=== PATIENT | male | born 1965 | race Caucasian/White ===

== ENCOUNTER 2018-06-21 13:20 | Emergency (ER) | payer OTHER ==
[2018-06-21] MEDS ORDERED: Lorazepam 2 MG/ML VIAL ONE (14:56)
[2018-06-21 15:05] LABS: #Basophils 0.1 thou/uL (0.0-0.2); #Eosinphils 0.1 thou/uL (0.0-0.7); #Monocytes 0.6 thou/uL (0.11-0.59); #Neutrophils 4.4 thou/uL (1.40-6.50); %Basophils 0.7 % (0.0-1.0); %Eosinophils 1.8 % (0.0-10.0); %Lymphocytes 28.2 % (21.0-51.0); %Monocytes 8.5 % (0.0-10.0); %Neutrophils 60.8 % (42.0-75.0); Hemoglobin 15.3 g/dL (14.0-18.0); Mean Corpuscular HGB CONC 33.9 g/dL (32.0-36.0); Mean Corpuscular Hemoglobin 34.1 pg (27.0-31.0); Mean Platelet Volume 9.5 fL (7.4-10.4); Platelet Count 60 thou/uL (130-400); RBC Distribution Width 12.2 % (11.5-14.5); Red Blood Cell (RBC) Count 4.47 mill/uL (4.70-6.10); White Blood Cell (WBC) Count 7.2 thou/uL (4.8-10.8)
[2018-06-21 15:08] LABS: ALT (SGPT) 127 U/L (8-55); AST (SGOT) 128 U/L (5-34); Acetaminophen Less than 6.0 mcg/mL (10.0-30.0); Albumin 4.3 g/dL (3.5-5.0); Alcohol 319 mg/dL (Less than 10); Alkaline Phosphatase 95 U/L (40-150); Anion Gap 15 mmol/L (10-20); BUN (Urea Nitrogen) 5 mg/dL (8.9-20.6); Bilirubin, Total 0.8 mg/dL (0.2-1.2); Calc. Creatinine Clearance 0 mL/min (70-130); Carbon Dioxide 27 mmol/L (22-29); Chloride 103 mmol/L (98-107); Estimated GFR-MDRD Greater than 90; Globulin 2.6 g/dL (2.4-3.5); Glucose 110 mg/dL (70-105); Protein, Total 6.9 g/dL (6.0-8.3); Salicylate Less than 8.0 mg/dL (15.0-30.0); Sodium 141 mmol/L (136-145)
[2018-06-21 15:13] LABS: CKMB 1.6 ng/mL (0-6.6); Troponin I Less than 0.010 ng/mL (< 0.028)
[2018-06-21 15:22] LABS: Bilirubin Negative (Negative); Blood, Urine Negative (Negative); Clarity CLEAR (Clear); Glucose, Urine (Dipstick) Negative (Negative); Leukocyte Negative (Negative); Nitrite Negative (Negative); Protein, Urine (Dipstick) Negative (Neg-Trace); Specific Gravity, Urine 1.003 (1.002-1.036)
[2018-06-21 15:32] LABS: Amphetamine Not Detected (NotDetected); Barbiturates Screen Not Detected (NotDetected); Benzodiazepine Screen Not Detected (NotDetected); Cocaine Metabolite Screen Not Detected (NotDetected); Medtox Control Line Valid? VALID (VALID); Medtox Reader # READER 4; Methadone Not Detected (NotDetected); Methamphetamine Not Detected (NotDetected); Opiate Screen Not Detected (NotDetected); Oxycodone Screen Not Detected (NotDetected); Phencyclidine (PCP) Not Detected (NotDetected); THC/Cannabinoid Screen Not Detected (NotDetected); Tricyclic Screen Not Detected (NotDetected)
--- NOTE | 2018-06-26 13:22 | EKG ---
Test Reason : Blood Pressure : / mmHG Vent. Rate : 072 BPM Atrial Rate : 072 BPM P-R Int : 176 ms QRS Dur : 106 ms QT Int : 382 ms P-R-T Axes : 045 023 039 degrees QTc Int : 418 ms Normal sinus rhythm Normal ECG Confirmed by NORBERT CHAPMAN ([id number]), editor & co founder GABBIE FLETCHER ([id number]) on 06/26/2018 1:21:55 PM Referred By: Confirmed By:NORBERT CHAPMAN
== END 2018-06-21 21:04 | disposition home or self-care (01) ==
LOC: ERS 13:20
DX: F41.9 Anxiety disorder, unspecified (principal); F32.9 Major depressive disorder, single episode, unspecified; F17.210 Nicotine dependence, cigarettes, uncomplicated
CPT/HCPCS: 36415; 80053; 80306; 80307; 81003; 82553; 84484; 85025; 87086; 93005; 96361; 96374; J2060

== ENCOUNTER 2018-08-01 11:27 | Inpatient (IN) | payer OTHER, SELFPAY ==
[2018-08-01 12:13] LABS: PTT 30.1 SEC (22.9-36.1); Prothrombin Time 13.5 SEC (12.0-14.7)
[2018-08-01] MEDS ORDERED: Morphine 4 MG/ML VIAL ONE ×2 (12:21→14:06)
[2018-08-01 12:22] LABS: Band 2 % (5-11); Eosinophils 1 % (0-10); Hemoglobin 12.9 g/dL (14.0-18.0); Lymphocytes 16 % (21-51); MDiff Complete? YES; Mean Corpuscular HGB CONC 33.7 g/dL (32.0-36.0); Mean Corpuscular Hemoglobin 34.5 pg (27.0-31.0); Mean Platelet Volume 8.1 fL (7.4-10.4); Monocytes 13 % (0-10); Neutrophil 68 % (42-75); PLT Morphology Comment Appears Decreased; Platelet Count 100 thou/uL (130-400); RBC Distribution Width 11.5 % (11.5-14.5); Red Blood Cell (RBC) Count 3.75 mill/uL (4.70-6.10); White Blood Cell (WBC) Count 9.6 thou/uL (4.8-10.8)
[2018-08-01 12:27] LABS: ALT (SGPT) 20 U/L (8-55); AST (SGOT) 15 U/L (5-34); Albumin 4.1 g/dL (3.5-5.0); Alkaline Phosphatase 60 U/L (40-150); Anion Gap 8 mmol/L (10-20); BUN (Urea Nitrogen) 11 mg/dL (8.9-20.6); Bilirubin, Total 1.3 mg/dL (0.2-1.2); CK (CPK) 62 U/L (30-200); Calc. Creatinine Clearance 0 mL/min (70-130); Calcium 9.2 mg/dL (7.8-10.44); Carbon Dioxide 27 mmol/L (22-29); Chloride 103 mmol/L (98-107); Estimated GFR-MDRD Greater than 90; Globulin 2.7 g/dL (2.4-3.5); Glucose 129 mg/dL (70-105); Potassium 4.1 mmol/L (3.5-5.1); Protein, Total 6.8 g/dL (6.0-8.3); Sodium 134 mmol/L (136-145)
--- NOTE | 2018-08-01 13:41 | ULT ---
LEFT LOWER EXTREMITY VENOUS DUPLEX EXAM: Date: 08/01/18 Deep veins of left lower extremity evaluated with color Doppler, spectral analysis, and compression. INDICATION: Left lower extremity pain and edema. Recent injury. FINDINGS: Deep veins of the left lower extremity show normal flow and compression. No evidence of deep venous t hrombosis. There is a large, partially fluid, but complex collection in the medial soft tissues of the calf. A l arge hematoma would be suspected given the history of recent injury. This measures in the 10.0 cm wid th x 3.5 cm AP dimension in transverse plane. IMPRESSION: 1. No evidence left lower extremity deep venous thrombosis. 2. Large complex fluid collection in the medial left soft tissues of the calf most consistent with l arge hematoma. Other processes such as abscess are not excluded. POS: KATIE
[2018-08-01] MEDS ORDERED: PROPOFOL 200 MG/20 ML VIAL ONE (13:58)
[2018-08-01] MEDS ORDERED: Fentanyl 100 MCG/2 ML VIAL ONE ×3 (16:04→19:55)
[2018-08-01] MEDS ORDERED: HYDROcodone/Acetaminophen 10/325 mg Tablet PO PRN (17:22)
[2018-08-01] MEDS ORDERED: Communication Order-Pharmacy FS SCH (17:30)
[2018-08-01] MEDS ORDERED: CEFAZOLIN/Water 2 GM/20 ML SYRINGE SLOW IVP SCH (17:30)
--- NOTE | 2018-08-01 18:00 | CON ---
DATE OF CONSULTATION: 08/01/2018 HISTORY OF PRESENT ILLNESS: This is a pleasant gentleman who hurt his left knee. His knee was very painful. He developed severe pain and swelling in his left calf. The pain is so severe he is curren tly requiring IV narcotic medication. This is still not controlling the pain well. REVIEW OF SYSTEMS: Negative for bleeding problems, bleeding gums, taking blood thinners, other probl ems with his hematopoietic system. PAST MEDICAL HISTORY: Otherwise negative. FAMILY HISTORY: Negative. SOCIAL HISTORY: He does smoke cigarettes and drinks beer regularly, but no hard liquor or drugs. ALLERGIES TO MEDICATIONS: None. PHYSICAL EXAMINATION: GENERAL: Pleasant gentleman in no distress. HEENT: Normocephalic, atraumatic. LUNGS: Clear. HEART: Regular. ABDOMEN: Soft, nontender. EXTREMITIES: The left leg has marked swelling, at least 50 greater in circumference than the opposit e leg. Calf is tight, hard. He has some decreased sensation in the toes. He has pain with dorsifle xion of his ankle. He does have 1+ palpable DP pulse and posterior tibial pulse. Venous ultrasound was negative for clot, but does show a large hematoma in the posterior compartment of his leg. ASSESSMENT: Compartment syndrome, left leg. PLAN: Fasciotomy. He understands risk of infection, stiffness, nerve or blood vessel damage, blood clots, transfusion, . He would like to proceed with surgery. He understands this may not be ab le to be closed and may require later skin graft. He would like to proceed with surgery.
[2018-08-01] MEDS ORDERED: CEFAZOLIN/Water 2 GM/20 ML SYRINGE ONE (18:38)
[2018-08-01] MEDS ORDERED: Midazolam HCl 2 mg/2 ml Vial ONE (19:55)
[2018-08-01] MEDS ORDERED: TETANUS AND DIPHTHERIA TOX/PF 0.5 ML DISP.SYRIN IM SCH (20:00)
[2018-08-01] MEDS ORDERED: Promethazine HCl 25 MG/ML VIAL SLOW IVP PRN (20:45)
[2018-08-01] MEDS ORDERED: Promethazine HCl 25 MG/ML VIAL IM PRN (20:45)
[2018-08-01] MEDS ORDERED: Ondansetron HCl/PF 4 MG/2 ML Vial IVP PRN (20:45)
[2018-08-01] MEDS ORDERED: Meperidine HCl/PF 25 MG/ML VIAL ONE (21:01)
[2018-08-01] MEDS: Fentanyl 100 MCG/2 ML VIAL SLOW IVP PRN ×2 (22:10→23:25)
[2018-08-01] MEDS: Aspirin 81 mg Enteric Coated Tablet PO SCH (22:11)
[2018-08-01] MEDS: HYDROcodone/Acetaminophen 10/325 mg Tablet PO PRN (22:21)
[2018-08-02] MEDS: CEFAZOLIN 2 GM/50 ML-DEXTROSE 2 GM in Premix Bag 1 BAG IVPB SCH ×4 (00:30→20:43)
[2018-08-02] MEDS: Fentanyl 100 MCG/2 ML VIAL SLOW IVP PRN ×4 (00:37→15:56)
[2018-08-02 01:26] VITALS: BMI 21.9
[2018-08-02] MEDS: Sodium Chloride 0.9% 100 ML IV SCH ×11 (01:48→23:29)
[2018-08-02] MEDS: HYDROcodone/Acetaminophen 10/325 mg Tablet PO PRN ×3 (02:22→20:42)
--- NOTE | 2018-08-02 04:29 | OP ---
PREOPERATIVE DIAGNOSIS: Compartment syndrome, left leg. POSTOPERATIVE DIAGNOSIS: Compartment syndrome, left leg. PROCEDURE: Fasciotomy, left leg. SURGEON: Edgar Young MD DISTILLATION OPERATOR: None. BLOOD LOSS: Difficult to estimate. I got about a liter of old blood out of the leg, but fresh blood is probably 200. SPECIMEN: None. DRAINS: None. COMPLICATIONS: None. DESCRIPTION OF PROCEDURE: The patient was taken to the operating room, where general anesthesia was induced. He received Ancef preoperatively. Left leg was prepped and draped in the usual sterile fas hion. I made a medial longitudinal incision. Dissection was carried down posterior to the tibia, op ened the deep and superficial compartments. liquid blood came out of the superficial posterior compartment. Large amount of hematoma was also removed, solid clot. Pulsatile lavage irrigation __ ___ to remove the rest of the clot. The subcutaneous tissue was closed with 2-0 Vicryl and skin was closed with nilesh. A bulky compressive dressing was applied. There were no complications.
[2018-08-02 06:17] LABS: #Eosinphils 0.3 thou/uL (0.0-0.7); #Lymphocytes 1.8 thou/uL (1.20-3.40); #Monocytes 1.4 thou/uL (0.11-0.59); #Neutrophils 6.2 thou/uL (1.40-6.50); %Basophils 0.4 % (0.0-1.0); %Eosinophils 2.6 % (0.0-10.0); %Lymphocytes 18.8 % (21.0-51.0); %Monocytes 14.5 % (0.0-10.0); %Neutrophils 63.7 % (42.0-75.0); Mean Corpuscular HGB CONC 32.5 g/dL (32.0-36.0); Mean Corpuscular Hemoglobin 33.7 pg (27.0-31.0); Mean Platelet Volume 8.4 fL (7.4-10.4); Platelet Count 103 thou/uL (130-400); RBC Distribution Width 11.2 % (11.5-14.5); Red Blood Cell (RBC) Count 3.27 mill/uL (4.70-6.10); White Blood Cell (WBC) Count 9.8 thou/uL (4.8-10.8)
[2018-08-02] MEDS: Aspirin 81 mg Enteric Coated Tablet PO SCH ×2 (08:10→20:43)
[2018-08-02] MEDS ORDERED: Lorazepam 0.5 MG TAB PO PRN (08:32)
[2018-08-02] MEDS: Nicotine 21 MG PATCH TD SCH (09:58)
[2018-08-02] MEDS: Ketorolac Tromethamine 30 MG/ML VIAL IVP PRN ×2 (09:58→18:17)
[2018-08-02] MEDS: Lorazepam 1 MG TAB PO PRN ×3 (10:40→22:54)
[2018-08-03] MEDS: Ketorolac Tromethamine 30 MG/ML VIAL IVP PRN ×2 (00:37→06:12)
[2018-08-03] MEDS: HYDROcodone/Acetaminophen 10/325 mg Tablet PO PRN ×3 (00:37→10:25)
[2018-08-03] MEDS: Sodium Chloride 0.9% 1,000 ML IV SCH ×2 (02:14→09:03)
[2018-08-03] MEDS: Lorazepam 1 MG TAB PO PRN (06:11)
[2018-08-03] MEDS: Aspirin 81 mg Enteric Coated Tablet PO SCH (09:00)
[2018-08-03] MEDS: Nicotine 21 MG PATCH TD SCH (09:06)
[2018-08-03 11:26] VITALS: BP 124/83; TEMP 97.9
--- NOTE | 2018-08-09 11:00 | DIS-2 ---
DATE OF ADMISSION: 08/01/2018 DATE OF DISCHARGE: 08/03/2018 ATTENDING PHYSICIAN: Dr. Edgar Young. REASON FOR ADMISSION: Lower extremity compartment syndrome of the left leg. PREOPERATIVE DIAGNOSIS: Compartment syndrome, left leg. POSTOPERATIVE DIAGNOSIS: Compartment syndrome, left leg. PROCEDURE: Fasciotomy, left leg. BRIEF HOSPITAL COURSE: This is a 52-year-old male who presented to the emergency department with sig ns and symptoms of compartment syndrome to his left leg of unknown etiology. He was taken to the ope rating room for the above-mentioned procedure. Postoperatively, he was admitted to [place] [id number] for posto perative analgesics and postoperative antibiotics. He worked with physical therapy and occupational therapy. Postoperatively, he did well. No complications were incurred. He was discharged home on p ostoperative day #2. DISCHARGE DISPOSITION: Home. DISCHARGE CONDITION: Stable. DISCHARGE INSTRUCTIONS: The patient will continue to elevate the left lower extremity. He will gillespie ge dressing as needed. He will follow up in the [facility] in 1-2 weeks. DISCHARGE MEDICATIONS: See NICHOLAS.
== END 2018-08-03 12:10 | disposition home or self-care (01) | DRG 909 ==
LOC: ERS 11:27 → SURG A 18:34 → SDC/OP 18:44 → SURG A 20:55
PROVIDERS: ADMIT Orthopaedic Surgery; ATTEND Orthopaedic Surgery
PROC: 0KNT0ZZ Release Left Lower Leg Muscle, Open Approach (ICD-10-PCS; principal; 2018-08-01)
PROC: 0KCT0ZZ Extirpation of Matter from Left Lower Leg Muscle, Open Approach (ICD-10-PCS; 2018-08-01)
DX: T79.A22A Traumatic compartment syndrome of left lower extremity, initial encounter (principal); F17.210 Nicotine dependence, cigarettes, uncomplicated; F41.9 Anxiety disorder, unspecified; F32.9 Major depressive disorder, single episode, unspecified; F43.10 Post-traumatic stress disorder, unspecified
CPT/HCPCS: 36415; 80053; 82550; 85025; 85610; 85730; 96361; 96374; 96375; 96376; G8978-GP-CI; G8979-GP-CI; G8980-GP-CI; J1885; J2175; J2250; J2270; J2704; J3010

== ENCOUNTER 2018-08-04 01:30 | Emergency (ER) | payer OTHER ==
[2018-08-04 02:20] LABS: #Eosinphils 0.4 thou/uL (0.0-0.7); #Lymphocytes 1.9 thou/uL (1.20-3.40); #Monocytes 1.7 thou/uL (0.11-0.59); #Neutrophils 7.8 thou/uL (1.40-6.50); %Basophils 0.3 % (0.0-1.0); %Eosinophils 3.5 % (0.0-10.0); %Lymphocytes 15.9 % (21.0-51.0); %Monocytes 14.3 % (0.0-10.0); Hemoglobin 11.6 g/dL (14.0-18.0); Mean Corpuscular HGB CONC 34.5 g/dL (32.0-36.0); Mean Corpuscular Hemoglobin 35.2 pg (27.0-31.0); Mean Platelet Volume 7.7 fL (7.4-10.4); Platelet Count 174 thou/uL (130-400); RBC Distribution Width 11.1 % (11.5-14.5); Red Blood Cell (RBC) Count 3.29 mill/uL (4.70-6.10); White Blood Cell (WBC) Count 11.9 thou/uL (4.8-10.8)
[2018-08-04 02:40] LABS: ALT (SGPT) 12 U/L (8-55); AST (SGOT) 18 U/L (5-34); Alkaline Phosphatase 60 U/L (40-150); Anion Gap 15 mmol/L (10-20); BUN (Urea Nitrogen) 8 mg/dL (8.9-20.6); Bilirubin, Total 0.7 mg/dL (0.2-1.2); Calc. Creatinine Clearance 0 mL/min (70-130); Calcium 9.4 mg/dL (7.8-10.44); Carbon Dioxide 26 mmol/L (22-29); Chloride 101 mmol/L (98-107); Estimated GFR-MDRD Greater than 90; Globulin 3.3 g/dL (2.4-3.5); Glucose 116 mg/dL (70-105); Potassium 3.8 mmol/L (3.5-5.1); Protein, Total 7.3 g/dL (6.0-8.3); Sodium 138 mmol/L (136-145)
--- NOTE | 2018-08-04 08:28 | ULT ---
PRELIMINARY REPORT/[facility]/EMERGENTY AFTER-HOURS PROCEDURE US Duplex Left Lower Extremity Veins CLINICAL HISTORY: 52 years old, male; Pain and signs and symptoms; Edema, localized; Lower extremity, left; Leg, lower; Prior surgery; Surgery date: 3-7 days post-operative; Surgery type: Left calf hematoma drained 3 day s ago. ; Patient HX: Lle pain/edema; Fever S/P lle surgery TECHNIQUE: Real-time duplex ultrasound scan of the left lower extremity veins integrating B-mode twodimensional vascular structure, Doppler spectral analysis, color flow Doppler imaging and compression. COMPARISON: No relevant prior studies available. FINDINGS: Deep veins: No acute findings. No DVT in the common femoral, femoral, popliteal, visualized calf vein s. The veins demonstrate normal color flow, are normally compressible, with normal phasic flow and/or augmentation response. Superficial veins: No acute findings. No thrombus in the visualized great saphenous vein. Soft tissues: Left medial upper/mid calf heterogeneous echogenicity complex lesion/collection measuri ng 10.5 x 5.6 x 1.7 cm. IMPRESSION: No deep venous thrombosis. Large left calf complex lesion/collection presumably related to hematoma given the clinical history; recommend followup as indicated. Thank you for allowing us to participate in the care of your patient. Dictated and Authenticated by: Biju Ambrocio MD 08/04/2018 3:21 AM Central Time ([place] & [place]) FINAL REPORT: LEFT VENOUS DOPPLER ULTRASOUND: I agree with the preliminary report provided. There is no evidence of DVT within the left lower extre mity. There is a very complex fluid filled structure within the proximal posterior foreleg which may reflect a diving Marie's cyst or a resolving hematoma. Complex cystic collection is seen within the m edial left lower leg on the comparison examination dated 08-01-18. POS:
== END 2018-08-04 03:24 | disposition home or self-care (01) ==
LOC: ERS 01:30
DX: L76.82 Other postprocedural complications of skin and subcutaneous tissue (principal); F41.9 Anxiety disorder, unspecified; F43.10 Post-traumatic stress disorder, unspecified; F17.210 Nicotine dependence, cigarettes, uncomplicated; Z79.891 Long term (current) use of opiate analgesic; Z79.899 Other long term (current) drug therapy; Z71.6 Tobacco abuse counseling
CPT/HCPCS: 80053; 83605; 85025; 99406